=== PATIENT | female | born 2000 | race Two or more races ===

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

== ENCOUNTER 2018-04-06 05:05 | Emergency (ER) | payer BC ==
[~2018-04-06] VITALS: Ht 165.1 cm; Wt 56.7 kg
--- NOTE | 2018-04-06 05:21 | NUR ---
PT A/OX4, C/O N/V, HEADACHE, GENERALIZED BODY ACHE X 7 DAYS. PT STATES HER SYMTPOMS HAVE BEEN WORSENING SINCE YESTERDAY (04/05/18). PT IS AFEBRILE, VSS.
--- NOTE | 2018-04-06 05:29 | NUR ---
SHAWN PAREKH AT BEDSIDE FOR MSE.
[2018-04-06] MEDS ORDERED: DEXAMETHASONE SOD PHOSPHATE 10 MG INJ ONE (05:39)
[2018-04-06] MEDS ORDERED: ONDANSETRON 4 MG/2 ML VIAL ONE (05:39)
[2018-04-06] MEDS: IV NORMAL SALINE 1000 ML BAG IV ONE (05:47)
[2018-04-06] MEDS: DEXAMETHASONE SOD PHOSPHATE 4 MG INJ IV ONE (05:47)
[2018-04-06] MEDS: ONDANSETRON IV *ER 4 MG/2 ML VIAL IV ONE (05:47)
--- NOTE | 2018-04-06 05:50 | NUR ---
PHELBOTOMIST AT BEDSIDE.
[2018-04-06 06:03] LABS: BASOPHILS % (AUTO) 0.2 % (0.0-2.0); HEMATOCRIT 39.8 % (31.2-41.9); HEMOGLOBIN 12.9 g/dL (10.9-14.3); LYMPHOCYTES # (AUTO) 1.1 K/uL (20.0-40.0); LYMPHOCYTES % (AUTO) 5.7 % (20.5-74.5); MEAN CORPUSCULAR HGB CONC 32 g/dL (32.3-35.6); MEAN CORPUSCULAR VOLUME 74.2 fL (75.5-95.3); MONOCYTES # (AUTO) 0.9 K/uL (2.0-10.0); MONOCYTES % (AUTO) 4.6 % (0-11); NEUTROPHILS # (AUTO) 16.6 K/uL (1.8-8.9); NEUTROPHILS % (AUTO) 89.5 % (31.5-64.5); PLATELET COUNT (AUTO) 213 K/uL (179-408); RED BLOOD CELL COUNT(AUTO) 5.37 MIL/uL (3.63-4.92); WHITE BLOOD COUNT (AUTO) 18.6 K/uL (3.8-11.8)
[2018-04-06 06:10] LABS: CREATININE 0.7 mg/dL (0.6-1.3); POTASSIUM 3.9 mmol/L (3.5-5.1)
[2018-04-06 06:17] LABS: *BILIRUBIN,URIN NEGATIVE (NEGATIVE); *BLOOD, URINE Trace-intact (NEGATIVE); *CLARITY,URINE CLEAR (CLEAR); *COLOR,URINE YELLOW (YELLOW); *KETONES,URINE 1+ (NEGATIVE); *PROTEIN,URINE NEGATIVE (NEGATIVE); *UROBILINOGEN,URINE 0.2 E.U./dl (NORMAL); LEUKOCYTE ESTERASE ,URINE NEGATIVE (NEGATIVE); NITRITE, URINE NEGATIVE (NEGATIVE); PH,URINE >=9.0 (5.0-8.0); UGLUCOSE NEGATIVE (NEGATIVE)
[2018-04-06 06:17] LABS: BILIRUBIN,DIRECT 0.1 mg/dL (0.0-0.2); BILIRUBIN,TOTAL 0.4 mg/dL (0.2-1.0); TOTAL PROTEIN, SERUM 7.8 g/dL (6.4-8.2)
[2018-04-06 06:22] LABS: BACTERIA,URINE FEW /HPF (NONE SEEN); RBC,URINE 0-3 /HPF (0-3); SQUAMOUS EPITHELIAL CELL,UR FEW /HPF (NONE SEEN); WBC,URINE 0-3 /HPF (0-3)
[2018-04-06 06:23] LABS: BAND % (MANUAL) 1 % (0-10); LYMPHOCYTES % (MANUAL) 6 % (38-48); MONOCYTES % (MANUAL) 5 % (2-10); NEUTROPHILS % (MANUAL) 88 % (40-55)
--- NOTE | 2018-04-06 06:28 | NUR ---
SHAWN PAREKH AT BEDSIDE FOR PT UPDATE.
--- NOTE | 2018-04-06 06:55 | NUR ---
Patient discharged to home in stable conditon. Written and verbal after care instructions given. Patient verbalizes understanding of instructions. PT D/C W/ PRESCRIPTIONS. ALL BELONGINGS W/ PT. PT SELF-AMBULATED WITHOUT DIFFICULTY. 20G IV ACCESS IN L AC REMOVED PRIOR TO D/C - INNER CANNULA INTACT.
[2018-04-06 06:56] VITALS: BP 120/72
== END 2018-04-06 06:57 | disposition home or self-care (01) ==
LOC: ER 05:06
DX: R11.2 Nausea with vomiting, unspecified (principal); R50.9 Fever, unspecified; R51 Headache; R42 Dizziness and giddiness; R53.1 Weakness; R35.0 Frequency of micturition
CPT/HCPCS: 36415; 80048; 80076; 81001; 83605; 84484; 85025; 87040 ×2; 87086; 87400; 96361; 96374; 96375; 99284; J1100; J2405; 70030-TC; A4663; J7030

== ENCOUNTER 2019-03-28 06:48 | Emergency (ER) | payer BC ==
[~2019-03-28] VITALS: Ht 165.1 cm; Wt 49.9 kg
--- NOTE | 2019-03-28 06:58 | NUR ---
Patient came from home with cheif complaint of body aches and chills. prior to coming to the ER patient stated she vomitted 5x, all fluids. Patient stated her last meal was yesterday around 1800. Patient states she has had a low appetite for the past 2 days. Patient VSS. patient denies any pain or discomfort at this time.
--- NOTE | 2019-03-28 07:01 | NUR ---
Dr. Peace at bedside to evaluate patient.
--- NOTE | 2019-03-28 07:27 | NUR ---
Patient discharged to home in stable conditon. Written and verbal after care instructions given. Patient verbalizes understanding of instructions. patient alert and oriented x4. patient self ambulatory with steady gait. Exit care package and personal belonings taken home with the patient at discharge. Patient denies any pain/discomfort at this time. Education provided prior to discharge.
[2019-03-28 07:28] VITALS: BP 118/78
== END 2019-03-28 07:29 | disposition home or self-care (01) ==
LOC: ER 06:50
DX: K52.9 Noninfective gastroenteritis and colitis, unspecified (principal)
CPT/HCPCS: A4663

== ENCOUNTER 2019-10-03 08:58 | Emergency (ER) | payer BC ==
[~2019-10-03] VITALS: Ht 165.1 cm; Wt 47.6 kg
--- NOTE | 2019-10-03 09:15 | NUR ---
PT PRESENTED TO ER IN A STABLE CONDITION W/STEADY GAIT C/O FEVER AND SORE THROAT. PT BELIVES SHE HAS COVID 19 AND WANTED TO GET TESTED.PT A/OX4, CLEAR SPEECH, NO NEURO DEFICIT NOTED. PT PLACED IN BED W/ BED AT LOWEST POSITION W.SIDE RAILS UP X2, FALL PRECAUTIONS IMPLEMENTED.
--- NOTE | 2019-10-03 09:45 | NUR ---
PT WAS GIVEN ORDER BY DR JESUS TO SIGN UP ON [facility] WEBSITE TO GET TESTED.PT DIDNT WANT TO STAY IN THE HOSPITAL AND AGREED TO GET TESTED AT A [facility] TESTING SITE.
--- NOTE | 2019-10-03 09:50 | NUR ---
Patient discharged to home in stable condition. Written and verbal after care instructions given. Patient verbalizes understanding of instructions.Pt givern direction to register online and get tested at a COVID site testing location. Stressed follow up or return to ER for worsening s/s.All belongings w/patient.
[2019-10-03 09:58] VITALS: BP 115/80
== END 2019-10-03 09:55 | disposition home or self-care (01) ==
LOC: ER 08:58
DX: J06.9 Acute upper respiratory infection, unspecified (principal); Z20.828 Contact with and (suspected) exposure to other viral communicable diseases
CPT/HCPCS: A4663